=== PATIENT | male | born 2005 | race Caucasian/White ===

== ENCOUNTER 2025-02-22 13:24 | Emergency (ER) | payer BC, SELFPAY ==
[2025-02-22 13:33] VITALS: BP 139/80
[2025-02-22 16:00] VITALS: BP 122/74
== END 2025-02-22 17:32 | disposition left against medical advice (07) ==
LOC: EMR 13:24
PROVIDERS: EMERGENCY PHYSICIAN Emergency Medicine; FAMILY PHYSICIAN Pediatrics
DX: R05.9 Cough, unspecified (principal); Z53.21 Procedure and treatment not carried out due to patient leaving prior to being seen by health care provider
CPT/HCPCS: 71046